=== PATIENT | male | born 1945 | race Asian ===

== ENCOUNTER 2021-12-14 21:16 | Emergency (ER) | payer OTHER ==
[~2021-12-14] VITALS: Ht 165.1 cm; Wt 79.4 kg
[2021-12-14 21:23] VITALS: BP_SYST 138
--- NOTE | 2021-12-14 23:02 | NUR ---
Per correspondence clerk, pt LWBS,.
== END 2021-12-14 23:02 | disposition left against medical advice (07) ==
LOC: SED 21:16
DX: M79.89 Other specified soft tissue disorders (principal); Z53.21 Procedure and treatment not carried out due to patient leaving prior to being seen by health care provider

== ENCOUNTER 2022-09-13 03:46 | Emergency (ER) | payer OTHER ==
[~2022-09-13] VITALS: Ht 165.1 cm; Wt 77.1 kg
[2022-09-13 04:00] VITALS: BP_SYST 131
--- NOTE | 2022-09-13 04:00 | NUR ---
Patient to ER bed 03 to gown for evaluation. Side rails up. Report given to CATHY SHIPLEY.
--- NOTE | 2022-09-13 04:10 | NUR ---
PT IS AA&OX4. . C/O SOB & DYSPNEA. INITIAL SPO2=91% ON RA, ADMINISTERED O2 @ 3l/MIN VIA NC ORDERED. SPO2 WENT UP TO 95%. AMBULATORY W/ STEADY GAIT. SPOUSE AT BEDSIDE. PER PT, HE HAS PMH: HTN, COPD, DM. SAFE & HAZARD FREE ENVIRONMENT PROVIDED.
--- NOTE | 2022-09-13 04:11 | NUR ---
# 18 gauge angiocath placed to RAC. Use of asceptic technique. Opsite placed over site. Blood return noted. Blood for lab drawn from site & SENT TO LAB. Flushed with 10 cc of normal saline. No evidence of infiltration noted. Patient tolerated well.
--- NOTE | 2022-09-13 04:23 | NUR ---
COVID/FLU SWAB GIVEN TO LAB
--- NOTE | 2022-09-13 04:25 | NUR ---
ER at bedside examining patient.
[2022-09-13] MEDS ORDERED: IPRATROPIUM/ALBUTEROL SULFATE 3 ML AMPUL.NEB (DUONEB) INH ONE (04:30)
[2022-09-13 04:37] LABS: BASOPHILS % (AUTO) 0.3 % (0.0-2.0); EOSINOPHILS # (AUTO) 0.2 K/uL (0.0-0.4); EOSINOPHILS % (AUTO) 1.9 % (0.0-4.0); HEMATOCRIT 39.6 % (36-54); HEMOGLOBIN 13.2 g/dL (14.0-18.0); LYMPHOCYTES # (AUTO) 0.7 K/uL (1.0-5.5); LYMPHOCYTES % (AUTO) 5.6 % (20.5-51.5); MEAN CORPUSCULAR HEMOGLOBIN 30 pg (27-31); MEAN CORPUSCULAR HGB CONC 33 % (32-36); MEAN CORPUSCULAR VOLUME 88 fL (79.0-98.0); MONOCYTES # (AUTO) 1.5 K/uL (0.0-1.0); MONOCYTES % (AUTO) 12.2 % (1.7-9.3); NEUTROPHILS # (AUTO) 9.7 K/uL (1.8-7.7); PLATELET COUNT (AUTO) 244 K/uL (130-430); RED BLOOD CELL COUNT(AUTO) 4.47 MIL/uL (4.2-6.2); RED CELL DISTRIBUTION WIDTH 13.6 % (9.0-15.0); WHITE BLOOD COUNT (AUTO) 12.1 K/uL (4.8-10.8)
[2022-09-13 04:49] LABS: ANION GAP 12 (5-15); CALCIUM 8.8 mg/dL (8.4-11.0); CHLORIDE 103 mmol/L (98-107); CREATININE 1.43 mg/dL (0.55-1.30); GLUCOSE 179 mg/dL (70-99); UREA NITROGEN, BLOOD 24 mg/dL (8-21)
[2022-09-13 04:56] LABS: ALANINE AMINOTRANSFERASE 13 U/L (12-78); ASPARTATE AMINOTRANSFERASE 7 U/L (10-37); TOTAL BILIRUBIN 0.6 mg/dL (0.0-1.0)
[2022-09-13] MEDS ORDERED: methylPREDNISolone SOD SUCC/PF 62.5 MG/ML VIAL IVP ONE (05:15)
--- NOTE | 2022-09-13 05:32 | NUR ---
SPOKE TO DAVE FROMADMITTING TO CALL INSURANCE([facility]) FOR TRANSFER
[2022-09-13] MEDS ORDERED: LEVO750T64 PO (06:56)
[2022-09-13] MEDS ORDERED: PRED20TA PO (06:56)
--- NOTE | 2022-09-13 07:10 | NUR ---
Patient does not wish to proceed with medical care recommended by Yousuf. Patient given information related to possible complications, up to and including , which could occur as a result of leaving hospital at this time. Patient verbalizes understanding of risks involved leaving against medical advice. Patient has signed AMA form.
--- NOTE | 2022-09-13 07:19 | NUR ---
Recieved report from CATHY Way; Pt is sitting up recieving ABX. Pt denies SOB, denies chest pain, and requests lab values and imaging. Pt informed to contact medical records will have MD address concerns related to lab values and imaging results.
--- NOTE | 2022-09-13 07:24 | NUR ---
REPORT GIVEN TO RIA ESTEVEZ TO ASSUME CARE
--- NOTE | 2022-09-13 07:38 | NUR ---
Pt requests MD evaluation of lab results. MD To gave oppurtunity to discuss and pt requested AMA form. Discussed with pt MD To is complete with shift. Pt said "OK that is fine then".
--- NOTE | 2022-09-13 08:05 | NUR ---
Insurance company follow up call regarding 0710 departure AMA.
[2022-09-13 08:06] VITALS: BP_SYST 121
== END 2022-09-13 07:10 | disposition left against medical advice (07) ==
LOC: SED 03:46
DX: J18.9 Pneumonia, unspecified organism (principal); R09.02 Hypoxemia; N17.9 Acute kidney failure, unspecified; E11.9 Type 2 diabetes mellitus without complications; I10 Essential (primary) hypertension; Z88.4 Allergy status to anesthetic agent; Z79.899 Other long term (current) drug therapy; Z20.822 Contact with and (suspected) exposure to COVID-19
CPT/HCPCS: 99285; 96365; 71045; 96375; 87426; 80053; 83880; 85025; 87040; 84484; 36415; 93005; 94640; 94760; 83605; 87804 ×2; J1956; J2930